=== PATIENT | male | born 1985 | race Caucasian/White ===

== ENCOUNTER 2016-03-22 13:07 | Observation (INO) ==
[2016-03-22] MEDS ORDERED: 0.9 % Sodium Chloride 1,000 ML IVC ONE (13:21)
[2016-03-22] MEDS ORDERED: Ondansetron 4 MG/2 ML VIAL IVP ONE ×2 (13:21→14:18)
--- NOTE | 2016-03-22 13:26 | Emergency Department Note ---
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 Patient has chills diaphoresis crampy abdominal pain diarrhea and vomiting. Pt Subjective Complaint: Heroin withdrawal Onset (ago): hour(s) Pain Scale: 8 - Related Data Previous Rx's Medication Instructions Recorded CloNIDine [Catapres] 0.1 mg PO TID #10 tab 02/12/15 Promethazine [Phenergan] 25 mg PO Q8HR #14 tablet 02/12/15 Doxycycline 100 mg PO BID #20 capsule 12/04/15 HydrOXYzine 10 mg PO TID #15 tablet 12/04/15 TraMADol [Ultram] 50 mg PO TID #10 tablet 12/04/15 Allergies Allergy/AdvReac Type Severity Reaction Status Date / Time No Known Allergies Allergy Verified 12/04/15 00:28 Constitutional: Reports: chills. Denies: fever, weakness, weight change Eyes: Denies: eye pain, eye discharge, vision change ENT ED: Denies: ear pain, throat pain, dental pain, hearing loss, epistaxis, congestion, dysphagia Cardiovascular: Denies: chest pain, palpitations, dyspnea on exertion, edema, syncope Respiratory: Denies: cough, dyspnea, wheezes, hemoptysis, stridor Gastrointestinal: Reports: abdominal pain (Crampy abdominal pain), nausea, vomiting, diarrhea. Denies: constipation, hematemesis, melena, hematochezia Genitourinary: Denies: urgency, dysuria, frequency, hematuria Musculoskeletal: Denies: back pain, neck pain, arthralgia, myalgia Integumentary: Denies: rash, abrasion, lesions Neurological: Denies: headache, weakness, numbness, paresthesias, confusion, abnormal gait, vertigo Psychiatric: Denies: anxiety, depression, suicidal thoughts, homicidal thoughts , auditory hallucinations, visual hallucinations Endocrine: Denies: fatigue Hematological/Lymphatic: Denies: easy bleeding, easy bruising Allergic/Immunologic: Denies: facial swelling, urticaria Past Medical History - Past Medical History Medical history: Reports: no medical history Surgical history: Reports: no surgical history Psychiatric history: Reports: anxiety, bipolar, depression - Social History Smoking Status: Current every day smoker Smokeless Tobacco Status: No Alcohol use: Reports: none Drug use: Reports: cocaine, opiates, IVDU, prescription drug abuse Physical Exam - General Limitations: no limitations General appearance: alert, in no apparent distress - Head Head exam: atraumatic, normocephalic, normal inspection - Eye Eye exam: Present: normal appearance, PERRL, EOMI - ENT ENT exam: normal exam, normal oropharynx, mucous membranes moist - Neck Neck exam: Present: normal inspection, full ROM, trachea midline - Chest Chest inspection: Present: normal inspection, symmetric chest wall rise - Respiratory Respiratory exam: Present: normal lung sounds bilaterally - Cardiovascular Cardiovascular exam: Present: regular rate, normal rhythm, normal heart sounds - Abdominal Exam Abdominal exam: Present: soft, Non-Tender. Absent: tenderness, distention, guarding, rebound, rigidity - Extremities Exam Extremities exam: Present: normal inspection, full ROM. Absent: tenderness, pedal edema - Expanded Lower Extremity Exam Neurovascular/Tendon exam: Absent: motor deficit, sensory deficit, tendon deficit Gait: not tested/not observed - Back Exam Back exam: Present: normal inspection, full ROM. Absent: tenderness - Neurological Exam Neurological exam: Present: alert, oriented X3 - Psychiatric Psychiatric exam: Present: normal affect, normal mood - Skin Skin exam: Present: warm, dry, intact, normal color Course - Reevaluation(s) Reevaluation #1: The patient has persistent nausea vomiting despite treatment with IV Zofran and Phenergan. Time: 18:09 - Consultations Consultation #1: Discussed with jp Gaspar. Time: 18:10 Vital Signs Temperature 99.4 F 03/22/16 13:11 Pulse Rate 82 03/22/16 13:11 Respiratory Rate 16 03/22/16 13:11 Blood Pressure 111/74 03/22/16 13:11 O2 Sat by Pulse Oximetry 100 03/22/16 13:11 Temperature 99.4 F 03/22/16 13:11 Pulse Rate 58 03/22/16 17:30 Respiratory Rate 16 03/22/16 17:30 Blood Pressure 113/81 03/22/16 17:30 O2 Sat by Pulse Oximetry 100 03/22/16 17:30 Oxygen Delivery Oxygen Delivery Room Air Medical Decision Making - Lab Data Result diagrams: 03/22/16 13:31 03/22/16 13:31 Lab Results 03/22/16 03/22/16 03/22/16 Range/Units 13:31 13:31 15:30 WBC 9.8 (4.3-11.1) K/mcL RBC 4.62 (4.19-5.50) M/mcL Hgb 13.1 (12.9-16.9) g/dL Hct 38.7 (37.5-50.1) % MCV 83.8 (83.0-100.0) fL MCH 28.4 (28.0-33.3) pg MCHC 33.9 (31.6-35.5) g/dL RDW 13.7 (11.5-14.5) % Plt Count 279 (140-400) K/mcL MPV 9.6 (9.4-12.4) fL Immature Gran % 0.9 (0-4) % Seg Neutrophils % 78.7 % Lymphocytes % 16.0 % Monocytes % 4.0 % Eosinophils % 0.0 % Basophils % 0.4 % Neutrophils # 7.7 (1.6-8.9) K/mcL Lymphocytes # 1.6 (0.6-4.6) K/mcL Monocytes # 0.4 (0.0-1.3) K/mcL Eosinophils # 0.0 (0.0-0.6) K/mcL Basophils # 0.0 (0.0-0.2) K/mcL Reactive Lymphocytes Present A (Not Present) Platelet Estimate Normal (Normal) Sodium 140 (136-145) mEq/L Potassium 3.8 (3.5-4.5) mEq/L Chloride 108 (98-109) mEq/L Carbon Dioxide 22 (19-29) mEq/L BUN 10 (8-26) mg/dL Creatinine 0.84 (0.72-1.25) mg/dL Est GFR ( Amer) > 60 (> 60) Est GFR (Non-Af Amer) > 60 (> 60) BUN/Creatinine Ratio 12 (6-26) Glucose 126 H (70-99) mg/dL Calculated Osmolality 291 (280-300) Calcium 9.9 (8.6-10.8) mg/dL Total Bilirubin 0.6 (0.2-1.2) mg/dL Direct Bilirubin 0.3 (0.0-0.5) mg/dL Indirect Bilirubin 0.3 (0.0-1.2) mg/dL AST 19 (5-34) Units/L ALT 17 (0-55) Units/L Alkaline Phosphatase 83 (38-126) Units/L Serum Total Protein 8.6 H (6.0-8.3) g/dL Albumin 3.5 (3.5-5.0) g/dL Globulin 5.1 H (2.4-3.5) g/dL Albumin/Globulin Ratio 0.7 L (1.1-2.2) Urine Color Dark Yellow (Yellow) Urine Clarity Clear (Clear) Urine pH 8.5 H (5.0-8.0) pH Units Ur Specific [place] 1.029 H (1.010-1.025) Urine Protein >=300 H (Neg-Trace) mg/dL Urine Glucose (UA) Normal (Normal) mg/dL Urine Ketones 15 H (Negative) mg/dL Urine Blood Negative (Negative) Urine Nitrite Negative (Negative) Urine Bilirubin Small H (Negative) Urine Urobilinogen Normal (Normal) mg/dL Ur Leukocyte Esterase Negative (Negative) Urine Microscopic RBC 0-3 (0-3) per hpf Urine Microscopic WBC 3-5 H (0-3) per hpf Ur Squamous Epith Cells Many H (None-Few) per lpf Urine Bacteria None Seen (None-Few) per hpf Hyaline Casts Test Not Performed Salicylates < 5.0 L (15-30) mg/dL Urine Opiates Screen (Ymxpqv=069) ng/mL Acetaminophen < 1.0 L (10-30) mcg/mL Ur Barbiturates Screen (Redcyc=552) ng/mL Ur Phencyclidine Scrn (Cutoff=25) ng/mL Ur Amphetamines Screen (Nbsmtp=2273) ng/mL U Benzodiazepines Scrn (Levnkk=938) ng/mL Urine Cocaine Screen (Cutoff= 300) ng/mL U Marijuana (THC) Screen (Cutoff = 50) ng/mL Ethyl Alcohol < 10 (0-10) mg/dL 03/22/16 Range/Units 15:30 WBC (4.3-11.1) K/mcL RBC (4.19-5.50) M/mcL Hgb (12.9-16.9) g/dL Hct (37.5-50.1) % MCV (83.0-100.0) fL MCH (28.0-33.3) pg MCHC (31.6-35.5) g/dL RDW (11.5-14.5) % Plt Count (140-400) K/mcL MPV (9.4-12.4) fL Immature Gran % (0-4) % Seg Neutrophils % % Lymphocytes % % Monocytes % % Eosinophils % % Basophils % % Neutrophils # (1.6-8.9) K/mcL Lymphocytes # (0.6-4.6) K/mcL Monocytes # (0.0-1.3) K/mcL Eosinophils # (0.0-0.6) K/mcL Basophils # (0.0-0.2) K/mcL Reactive Lymphocytes (Not Present) Platelet Estimate (Normal) Sodium (136-145) mEq/L Potassium (3.5-4.5) mEq/L Chloride (98-109) mEq/L Carbon Dioxide (19-29) mEq/L BUN (8-26) mg/dL Creatinine (0.72-1.25) mg/dL Est GFR ( Amer) (> 60) Est GFR (Non-Af Amer) (> 60) BUN/Creatinine Ratio (6-26) Glucose (70-99) mg/dL Calculated Osmolality (280-300) Calcium (8.6-10.8) mg/dL Total Bilirubin (0.2-1.2) mg/dL Direct Bilirubin (0.0-0.5) mg/dL Indirect Bilirubin (0.0-1.2) mg/dL AST (5-34) Units/L ALT (0-55) Units/L Alkaline Phosphatase (38-126) Units/L Serum Total Protein (6.0-8.3) g/dL Albumin (3.5-5.0) g/dL Globulin (2.4-3.5) g/dL Albumin/Globulin Ratio (1.1-2.2) Urine Color (Yellow) Urine Clarity (Clear) Urine pH (5.0-8.0) pH Units Ur Specific [place] (1.010-1.025) Urine Protein (Neg-Trace) mg/dL Urine Glucose (UA) (Normal) mg/dL Urine Ketones (Negative) mg/dL Urine Blood (Negative) Urine Nitrite (Negative) Urine Bilirubin (Negative) Urine Urobilinogen (Normal) mg/dL Ur Leukocyte Esterase (Negative) Urine Microscopic RBC (0-3) per hpf Urine Microscopic WBC (0-3) per hpf Ur Squamous Epith Cells (None-Few) per lpf Urine Bacteria (None-Few) per hpf Hyaline Casts Salicylates (15-30) mg/dL Urine Opiates Screen Positive H (Ddditl=641) ng/mL Acetaminophen (10-30) mcg/mL Ur Barbiturates Screen Negative (Emaypz=668) ng/mL Ur Phencyclidine Scrn Negative (Cutoff=25) ng/mL Ur Amphetamines Screen Negative (Htmezt=7979) ng/mL U Benzodiazepines Scrn Negative (Mbcuda=128) ng/mL Urine Cocaine Screen Positive H (Cutoff= 300) ng/mL U Marijuana (THC) Screen Negative (Cutoff = 50) ng/mL Ethyl Alcohol (0-10) mg/dL - EKG Data EKG #1 EKG shows normal: sinus rhythm Rate: bradycardia Rhythm: NSR Interpretation: no acute changes
[2016-03-22] MEDS ORDERED: CloNIDine Patch 0.1 MG PATCH (WEEKLY) TD SCH (13:30)
[2016-03-22 13:37] LABS: Basophils % 0.4 %; Hematocrit 38.7 % (37.5-50.1); Hemoglobin 13.1 g/dL (12.9-16.9); Immature Granulocytes % 0.9 % (0-4); Lymphocytes # 1.6 K/mcL (0.6-4.6); Mean Corpuscular HGB Conc 33.9 g/dL (31.6-35.5); Mean Corpuscular Hemoglobin 28.4 pg (28.0-33.3); Mean Corpuscular Volume 83.8 fL (83.0-100.0); Mean Platelet Volume 9.6 fL (9.4-12.4); Monocytes # 0.4 K/mcL (0.0-1.3); Neutrophils # 7.7 K/mcL (1.6-8.9); Platelet Count 279 K/mcL (140-400); Red Blood Count 4.62 M/mcL (4.19-5.50); Red Cell Distribution Width 13.7 % (11.5-14.5); Segmented Neutrophils % 78.7 %
[2016-03-22 13:52] LABS: Alanine Aminotransferase 17 Units/L (0-55); Albumin 3.5 g/dL (3.5-5.0); Albumin/Globulin Ratio 0.7 (1.1-2.2); Alkaline Phosphatase 83 Units/L (38-126); Aspartate Amino Transferase 19 Units/L (5-34); BUN/Creatinine Ratio 12 (6-26); Bilirubin,Direct 0.3 mg/dL (0.0-0.5); Bilirubin,Indirect 0.3 mg/dL (0.0-1.2); Bilirubin,Total 0.6 mg/dL (0.2-1.2); Blood Urea Nitrogen 10 mg/dL (8-26); Calcium 9.9 mg/dL (8.6-10.8); Carbon Dioxide 22 mEq/L (19-29); Chloride 108 mEq/L (98-109); Globulin 5.1 g/dL (2.4-3.5); Glucose 126 mg/dL (70-99); Osmolality,Calculated 291 (280-300); Potassium 3.8 mEq/L (3.5-4.5); Sodium 140 mEq/L (136-145); Total Protein 8.6 g/dL (6.0-8.3); eGFR For African Americans > 60 (> 60); eGFR For Non-African Americans > 60 (> 60)
[2016-03-22 13:54] LABS: Acetaminophen < 1.0 mcg/mL (10-30); Ethanol < 10 mg/dL (0-10); Salicylate < 5.0 mg/dL (15-30)
[2016-03-22 13:57] LABS: Platelet Estimate Normal (Normal); Reactive Lymphocytes Present (Not Present)
[2016-03-22 15:50] LABS: Amphetamine Screen,Urine Negative ng/mL (Cutoff=1000); Barbiturate Screen,Urine Negative ng/mL (Cutoff=200); Benzodiazepines Screen,Urine Negative ng/mL (Cutoff=200); Cannabinoid Screen,Urine Negative ng/mL (Cutoff = 50); Cocaine Screen,Urine Positive ng/mL (Cutoff= 300); Opiate Screen,Urine Positive ng/mL (Cutoff=300); Phencyclidine Screen,Urine Negative ng/mL (Cutoff=25)
[2016-03-22 16:12] LABS: Bilirubin,Urine Small (Negative); Blood,Urine Negative (Negative); Clarity,Urine Clear (Clear); Color,Urine Dark Yellow (Yellow); Glucose,Urine (UA) Normal (Normal); Ketones,Urine 15 mg/dL (Negative); Leukocyte Esterase,Urine Negative (Negative); Nitrite,Urine Negative (Negative); PH,Urine 8.5 pH Units (5.0-8.0); Protein,Urine >=300 mg/dL (Neg-Trace); Specific Gravity,Urine 1.029 (1.010-1.025); Urobilinogen,Urine Normal (Normal)
[2016-03-22 16:15] LABS: Bacteria,Urine None Seen per hpf (None-Few); RBC,Urine 0-3 per hpf (0-3); Squamous Epithelial Cell,Urine Many per lpf (None-Few)
[2016-03-22] MEDS ORDERED: *HR* Promethazine 25 MG/ML VIAL IVP ONE (16:55)
[2016-03-22] MEDS ORDERED: Naloxone 0.4 MG/ML INJ IVP PRN (19:23)
[2016-03-22] MEDS: Ringers Solution, Lactated 1,000 ML IVC SCH (21:37)
[2016-03-22] MEDS: Famotidine 20 MG/2 ML VIAL IVP SCH (21:38)
[2016-03-22] MEDS: *HR* Promethazine 25 MG/ML VIAL IVP PRN (21:43)
--- NOTE | 2016-03-22 22:00 | Internal Med History&Physical ---
Date of Encounter: 03/22/16 Time of Encounter: 19:35 Internal Medicine - H&P: HPI Chief complaint: Feeling sick, nausea, vomitting, abdominal pain x 1-2 days Admitted From: Emergency Dept Plans for Post Hospital Care: Home History of present illness: Mr. 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 He reports his last use was 2 days ago. He has not been able to access the drug. He reports intravenous use and snorting. He denies history of hepatitis. He has had occasional encounter with the law, work and family life has been affected. He is FULL CODE as per discussion. He nominates his spouse, Cait Love ([phone]) HIS nok/poa. Medical history: Reports: no medical history Surgical history: Reports: no surgical history Psychiatric history: Reports: anxiety, bipolar, depression Smoking Status: Current every day smoker Smokeless Tobacco Status: No Alcohol use: Reports: none Drug use: Reports: cocaine, opiates, IVDU, prescription drug abuse Family History: Father: heart disease, mother: DM2 ROS: A 10-point ROS was performed, positives and relevant negatives are detailed , system-symptoms not mentioned is assumed negative unless otherwise stated. Vital Signs Temperature 99.4 F 03/22/16 13:11 Pulse Rate 82 03/22/16 13:11 Respiratory Rate 16 03/22/16 13:11 Blood Pressure 111/74 03/22/16 13:11 O2 Sat by Pulse Oximetry 100 03/22/16 13:11 Temperature 99.4 F 03/22/16 13:11 Pulse Rate 58 03/22/16 17:30 Respiratory Rate 16 03/22/16 17:30 Blood Pressure 113/81 03/22/16 17:30 O2 Sat by Pulse Oximetry 100 03/22/16 17:30 O/E: In moderate distress, ill looking, not tremulous, no diaphoresis Not pale, anicteric, afebrile to touch, acyanotic, EOMI, PERRL HEENT: No cervical or jugular lymphadenopathy Chest: Clinically clear Heart: RRR, HS1/2. no tachycardia Abdomen: non-distended, soft, non-tender, no masses HANNAH: Not performed : No flank tenderness, no CVA tenderness, no suprapubic tenderness DEVULCANIZER HEAD: AAO X 3, no gross focal neurological deficits, no tremors on out-stretched hands SKIN: No active skin lesions. 03/22/16 13:31 Lab Results 03/22/16 03/22/16 03/22/16 Range/Units 13:31 13:31 15:30 WBC 9.8 (4.3-11.1) K/mcL RBC 4.62 (4.19-5.50) M/mcL Hgb 13.1 (12.9-16.9) g/dL Hct 38.7 (37.5-50.1) % MCV 83.8 (83.0-100.0) fL MCH 28.4 (28.0-33.3) pg MCHC 33.9 (31.6-35.5) g/dL RDW 13.7 (11.5-14.5) % Plt Count 279 (140-400) K/mcL MPV 9.6 (9.4-12.4) fL Immature Gran % 0.9 (0-4) % Seg Neutrophils % 78.7 % Lymphocytes % 16.0 % Monocytes % 4.0 % Eosinophils % 0.0 % Basophils % 0.4 % Neutrophils # 7.7 (1.6-8.9) K/mcL Lymphocytes # 1.6 (0.6-4.6) K/mcL Monocytes # 0.4 (0.0-1.3) K/mcL Eosinophils # 0.0 (0.0-0.6) K/mcL Basophils # 0.0 (0.0-0.2) K/mcL Reactive Lymphocytes Present A (Not Present) Platelet Estimate Normal (Normal) Sodium 140 (136-145) mEq/L Potassium 3.8 (3.5-4.5) mEq/L Chloride 108 (98-109) mEq/L Carbon Dioxide 22 (19-29) mEq/L BUN 10 (8-26) mg/dL Creatinine 0.84 (0.72-1.25) mg/dL Est GFR ( Amer) > 60 (> 60) Est GFR (Non-Af Amer) > 60 (> 60) BUN/Creatinine Ratio 12 (6-26) Glucose 126 H (70-99) mg/dL Calculated Osmolality 291 (280-300) Calcium 9.9 (8.6-10.8) mg/dL Total Bilirubin 0.6 (0.2-1.2) mg/dL Direct Bilirubin 0.3 (0.0-0.5) mg/dL Indirect Bilirubin 0.3 (0.0-1.2) mg/dL AST 19 (5-34) Units/L ALT 17 (0-55) Units/L Alkaline Phosphatase 83 (38-126) Units/L Serum Total Protein 8.6 H (6.0-8.3) g/dL Albumin 3.5 (3.5-5.0) g/dL Globulin 5.1 H (2.4-3.5) g/dL Albumin/Globulin Ratio 0.7 L (1.1-2.2) Urine Color Dark Yellow (Yellow) Urine Clarity Clear (Clear) Urine pH 8.5 H (5.0-8.0) pH Units Ur Specific [place] 1.029 H (1.010-1.025) Urine Protein >=300 H (Neg-Trace) mg/dL Urine Glucose (UA) Normal (Normal) mg/dL Urine Ketones 15 H (Negative) mg/dL Urine Blood Negative (Negative) Urine Nitrite Negative (Negative) Urine Bilirubin Small H (Negative) Urine Urobilinogen Normal (Normal) mg/dL Ur Leukocyte Esterase Negative (Negative) Urine Microscopic RBC 0-3 (0-3) per hpf Urine Microscopic WBC 3-5 H (0-3) per hpf Ur Squamous Epith Cells Many H (None-Few) per lpf Urine Bacteria None Seen (None-Few) per hpf Hyaline Casts Test Not Performed Salicylates < 5.0 L (15-30) mg/dL Urine Opiates Screen (Zpcnyo=451) ng/mL Acetaminophen < 1.0 L (10-30) mcg/mL Ur Barbiturates Screen (Glqdmb=197) ng/mL Ur Phencyclidine Scrn (Cutoff=25) ng/mL Ur Amphetamines Screen (Shwtws=9290) ng/mL U Benzodiazepines Scrn (Lqggpi=176) ng/mL Urine Cocaine Screen (Cutoff= 300) ng/mL U Marijuana (THC) Screen (Cutoff = 50) ng/mL Ethyl Alcohol < 10 (0-10) mg/dL 03/22/16 Range/Units 15:30 WBC (4.3-11.1) K/mcL RBC (4.19-5.50) M/mcL Hgb (12.9-16.9) g/dL Hct (37.5-50.1) % MCV (83.0-100.0) fL MCH (28.0-33.3) pg MCHC (31.6-35.5) g/dL RDW (11.5-14.5) % Plt Count (140-400) K/mcL MPV (9.4-12.4) fL Immature Gran % (0-4) % Seg Neutrophils % % Lymphocytes % % Monocytes % % Eosinophils % % Basophils % % Neutrophils # (1.6-8.9) K/mcL Lymphocytes # (0.6-4.6) K/mcL Monocytes # (0.0-1.3) K/mcL Eosinophils # (0.0-0.6) K/mcL Basophils # (0.0-0.2) K/mcL Reactive Lymphocytes (Not Present) Platelet Estimate (Normal) Sodium (136-145) mEq/L Potassium (3.5-4.5) mEq/L Chloride (98-109) mEq/L Carbon Dioxide (19-29) mEq/L BUN (8-26) mg/dL Creatinine (0.72-1.25) mg/dL Est GFR ( Amer) (> 60) Est GFR (Non-Af Amer) (> 60) BUN/Creatinine Ratio (6-26) Glucose (70-99) mg/dL Calculated Osmolality (280-300) Calcium (8.6-10.8) mg/dL Total Bilirubin (0.2-1.2) mg/dL Direct Bilirubin (0.0-0.5) mg/dL Indirect Bilirubin (0.0-1.2) mg/dL AST (5-34) Units/L ALT (0-55) Units/L Alkaline Phosphatase (38-126) Units/L Serum Total Protein (6.0-8.3) g/dL Albumin (3.5-5.0) g/dL Globulin (2.4-3.5) g/dL Albumin/Globulin Ratio (1.1-2.2) Urine Color (Yellow) Urine Clarity (Clear) Urine pH (5.0-8.0) pH Units Ur Specific [place] (1.010-1.025) Urine Protein (Neg-Trace) mg/dL Urine Glucose (UA) (Normal) mg/dL Urine Ketones (Negative) mg/dL Urine Blood (Negative) Urine Nitrite (Negative) Urine Bilirubin (Negative) Urine Urobilinogen (Normal) mg/dL Ur Leukocyte Esterase (Negative) Urine Microscopic RBC (0-3) per hpf Urine Microscopic WBC (0-3) per hpf Ur Squamous Epith Cells (None-Few) per lpf Urine Bacteria (None-Few) per hpf Hyaline Casts Salicylates (15-30) mg/dL Urine Opiates Screen Positive H (Ttgsxq=652) ng/mL Acetaminophen (10-30) mcg/mL Ur Barbiturates Screen Negative (Xajtif=477) ng/mL Ur Phencyclidine Scrn Negative (Cutoff=25) ng/mL Ur Amphetamines Screen Negative (Zvagar=1912) ng/mL U Benzodiazepines Scrn Negative (Jkynhz=923) ng/mL Urine Cocaine Screen Positive H (Cutoff= 300) ng/mL U Marijuana (THC) Screen Negative (Cutoff = 50) ng/mL Ethyl Alcohol (0-10) mg/dL EKG: SINUS BRADYCARDIA IMP Probable heroine withdrawal syndrome, but cannot exclude malingering Sinus bradycardia Chronic morbidities Heroine addiction Crack cocaine abuse plan Admit sUPPORTIVE CARE, ivf Clonidine patch IV Morphine 2mg Q6H X 24 HOURS Valium 2mg TID iv Ativan 1mg Q4H prn for agitation or anxiety Famotidine IV 20MG Q12H nO INDICATION for DVT prophylaxis LFTs, hepatitis profile. Patient is high risk due to suspected severe withdrawal syndrome. Past Med Surg Social Fam HX - Past Medical History Medical history: no medical history Psychiatric history: anxiety, bipolar, depression - Past Surgical History Surgical History: no surgical history - Social History Smoking Status: Current every day smoker Smokeless Tobacco Status: No Alcohol use: none Drug use: cocaine, opiates, IVDU, prescription drug abuse - Family History Mother Living Status: Still Living Internal Medicine - H&P: Meds No Known Home Drugs 03/22/16 [History] Allergies No Known Allergies Allergy (Verified 12/04/15 00:28) All Systems PM: A 10-system review of systems was performed and is negative for pertinent findings except as documented above in the HPI. - Constitutional Vitals: Temp Pulse Resp BP Pulse Ox 98.8 F 50 16 113/70 100 03/22/16 20:53 03/22/16 20:53 03/22/16 20:53 03/22/16 20:53 03/22/16 20:53 Internal Med - H&P Results - Labs CBC & Chem 7: 03/22/16 13:31 03/22/16 13:31 - VTE Reasons for not Prescribing Prophylaxis: Treatment not Indicated - Low risk for VTE
[2016-03-22] MEDS ORDERED: *HR* LORazepam 2 MG/ML VIAL IVP PRN (22:12)
[2016-03-22] MEDS: *HR* Morphine 2 MG/ML SYRINGE IVP SCH (23:54)
[2016-03-22] MEDS: diazePAM 2 MG TABLET PO SCH (23:54)
[2016-03-23] MEDS: Ringers Solution, Lactated 1,000 ML IVC SCH ×3 (04:36→19:35)
[2016-03-23] MEDS: *HR* Promethazine 25 MG/ML VIAL IVP PRN ×3 (04:36→21:41)
[2016-03-23] MEDS: *HR* Morphine 2 MG/ML SYRINGE IVP SCH ×3 (05:54→21:34)
[2016-03-23] MEDS: Famotidine 20 MG/2 ML VIAL IVP SCH ×2 (06:48→18:04)
[2016-03-23 09:04] LABS: Hepatitis B Core IgM Nonreactive (Nonreactive); Hepatitis B Surface Antigen Nonreactive (Nonreactive); Hepatitis C Virus Antibody Nonreactive (Nonreactive)
[2016-03-23] MEDS: diazePAM 2 MG TABLET PO SCH ×3 (09:15→21:34)
[2016-03-23 10:37] LABS: Hepatitis A Antibody IgM Nonreactive (Nonreactive)
--- NOTE | 2016-03-23 11:27 | Electrocardiograph Report ---
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
[2016-03-23] MEDS ORDERED: 0.9 % Sodium Chloride 1,000 ML IVC ONE (11:44)
[2016-03-23] MEDS ORDERED: 0.9 % Sodium Chloride 1,000 ML ONE (11:50)
--- NOTE | 2016-03-23 12:09 | Internal Med Progress Note ---
Date of Encounter: 03/23/16 Time of Encounter: 12:05 - Assessment and plan (1) Intractable nausea and vomiting Current Visit: Yes Status: Acute Assessment and plan: [place] BID , advance diet as tolerated Qualifiers: Vomiting type: unspecified Qualified Code(s): R11.2 - Nausea with vomiting , unspecified Code(s): R11.2 - Nausea with vomiting, unspecified SNOMED Code(s): 571298513, 761567871 (2) Drug withdrawal Current Visit: Yes Status: Acute Assessment and plan: Increase valium, may consider atarax Qualifiers: Substance type: opioid Qualified Code(s): F11.23 - Opioid dependence with withdrawal Code(s): F19.939 - Other psychoactive substance use, unspecified with withdrawal , unspecified SNOMED Code(s): 700547112 (3) Volume depletion Current Visit: Yes Status: Acute Assessment and plan: Add bolus fluid. discussed with staff close monitoring of vital signs Code(s): E86.9 - Volume depletion, unspecified SNOMED Code(s): 67197492 - Time Spent With Patient 25 - 35 minutes - Subjective Interval history: Patient C/o nausea , no vomiting since 3 AM. Patient is feeling anxious, tolerated clear liquid - Constitutional Vitals: Temp Pulse Resp BP Pulse Ox 98.5 F 61 17 96/55 100 03/23/16 11:25 03/23/16 11:25 03/23/16 11:25 03/23/16 11:25 03/23/16 11:25 General appearance: Present: mild distress, pleasant, answers questions appropriately - Eye Eye exam: Present: conjuntiva pink, sclera anicteric. Absent: nystagmus - Neck Neck exam general surgery: Present: supple, trachea midline. Absent: lymphadenopathy - Respiratory Respiratory exam: Present: CTAB. Absent: accessory muscle use, rales, rhonchi, wheezes - Cardiovascular Cardiovascular exam: Present: RRR, +S1, +S2. Absent: diastolic murmur, gallop, rubs, systolic murmur - GI/Abdominal GI/Abdominal exam: Present: normal bowel sounds, soft, no peritoneal signs. Absent: distended, tenderness - Extremities Exam Extremities exam: Present: warm, radial pulses palpable and symetrical. Absent : calf tenderness, cyanotic, pedal edema - Skin Skin exam: Present: dry, intact Internal Medicine: Result - Labs CBC & Chem 7: 03/22/16 13:31 03/22/16 13:31 - VTE Reasons for not Prescribing Prophylaxis: Treatment not Indicated - Low risk for VTE Consult Discharge Plan - Plan Referrals: NO,PCP [Primary Care Provider] -
[2016-03-23] MEDS ORDERED: *HR* LORazepam 2 MG/ML VIAL IVP PRN (12:15)
[2016-03-23 13:27] LABS: Magnesium 1.7 mg/dL (1.6-2.6); Phosphorous 3.9 mg/dL (2.3-4.7)
[2016-03-23] MEDS ORDERED: *HR* Morphine 2 MG/ML SYRINGE ONE (21:28)
[2016-03-24] MEDS: Ringers Solution, Lactated 1,000 ML IVC SCH ×3 (02:15→17:00)
[2016-03-24] MEDS: Famotidine 20 MG/2 ML VIAL IVP SCH ×2 (05:50→17:00)
[2016-03-24] MEDS: *HR* Promethazine 25 MG/ML VIAL IVP PRN ×2 (05:50→20:52)
[2016-03-24] MEDS: Ondansetron 4 MG/2 ML VIAL IVP PRN (08:41)
[2016-03-24] MEDS ORDERED: diazePAM 5 MG TABLET PO SCH (09:00)
[2016-03-24 11:10] LABS: Alanine Aminotransferase 18 Units/L (0-55); Albumin 3.1 g/dL (3.5-5.0); Albumin/Globulin Ratio 0.7 (1.1-2.2); Alkaline Phosphatase 66 Units/L (38-126); Aspartate Amino Transferase 15 Units/L (5-34); BUN/Creatinine Ratio 11 (6-26); Bilirubin,Total 0.8 mg/dL (0.2-1.2); Blood Urea Nitrogen 9 mg/dL (8-26); Calcium 8.9 mg/dL (8.6-10.8); Carbon Dioxide 24 mEq/L (19-29); Chloride 107 mEq/L (98-109); Globulin 4.2 g/dL (2.4-3.5); Glucose 113 mg/dL (70-99); Osmolality,Calculated 285 (280-300); Potassium 3.5 mEq/L (3.5-4.5); Sodium 138 mEq/L (136-145); Total Protein 7.3 g/dL (6.0-8.3); eGFR For African Americans > 60 (> 60); eGFR For Non-African Americans > 60 (> 60)
[2016-03-24 11:17] LABS: Basophils % 0.4 %; Eosinophils % 0.1 %; Hematocrit 37.9 % (37.5-50.1); Hemoglobin 12.4 g/dL (12.9-16.9); Immature Granulocytes % 3.8 % (0-4); Lymphocytes # 2.1 K/mcL (0.6-4.6); Lymphocytes % 20.4 %; Mean Corpuscular HGB Conc 32.7 g/dL (31.6-35.5); Mean Corpuscular Hemoglobin 27.9 pg (28.0-33.3); Mean Corpuscular Volume 85.2 fL (83.0-100.0); Monocytes # 0.7 K/mcL (0.0-1.3); Neutrophils # 7.1 K/mcL (1.6-8.9); Platelet Count 311 K/mcL (140-400); Red Blood Count 4.45 M/mcL (4.19-5.50); Red Cell Distribution Width 13.4 % (11.5-14.5); Segmented Neutrophils % 68.3 %
[2016-03-24] MEDS: Sucralfate 1 GM TABLET PO SCH ×3 (11:29→20:52)
--- NOTE | 2016-03-24 14:41 | Internal Med Progress Note ---
Date of Encounter: 03/24/16 Time of Encounter: 14:00 - Assessment and plan (1) Intractable nausea and vomiting Current Visit: Yes Status: Acute Assessment and plan: Protonix twice a day, check stool for occult blood. Access diet as tolerated. Check liver function test Qualifiers: Vomiting type: unspecified Qualified Code(s): R11.2 - Nausea with vomiting , unspecified Code(s): R11.2 - Nausea with vomiting, unspecified SNOMED Code(s): 454699251, 856775929 (2) Drug withdrawal Current Visit: Yes Status: Acute Assessment and plan: Counseling patient about long-term complication of IV drug use. Patient is seeking help for rehabilitation Qualifiers: Substance type: opioid Qualified Code(s): F11.23 - Opioid dependence with withdrawal Code(s): F19.939 - Other psychoactive substance use, unspecified with withdrawal , unspecified SNOMED Code(s): 489390025 (3) Volume depletion Current Visit: Yes Status: Acute Assessment and plan: Continue IV fluid Code(s): E86.9 - Volume depletion, unspecified SNOMED Code(s): 36829546 (4) Acute diarrhea Current Visit: Yes Status: Acute Assessment and plan: Check stool Study add Lactobacillus - Time Spent With Patient Greater than 35 minutes - Subjective Interval history: Patient still C/o nausea , no vomiting , very hard to tolerate any oral intake. He C/o diarrhea had 4 loose BM - Constitutional Vitals: Temp Pulse Resp BP Pulse Ox 97.6 F 49 16 109/63 99 03/24/16 11:12 03/24/16 11:12 03/24/16 11:12 03/24/16 11:12 03/24/16 11:12 General appearance: Present: mild distress, pleasant, answers questions appropriately - Head Head exam: Present: atraumatic, normocephalic - Neck Neck exam general surgery: Present: supple, trachea midline. Absent: lymphadenopathy - Respiratory Respiratory exam: Present: CTAB. Absent: accessory muscle use, rales, rhonchi, wheezes - Cardiovascular Cardiovascular exam: Present: RRR, +S1, +S2. Absent: diastolic murmur, gallop, rubs, systolic murmur - GI/Abdominal GI/Abdominal exam: Present: normal bowel sounds, soft, tenderness (Diffuse abdominal tenderness more in the epigastric area and bilateral upper quadrant area), no peritoneal signs. Absent: distended - Extremities Exam Extremities exam: Present: warm, radial pulses palpable and symetrical. Absent : calf tenderness, cyanotic, pedal edema Internal Medicine: Result - Labs CBC & Chem 7: 03/24/16 10:36 03/24/16 10:36 Labs: Short CBC 03/24/16 Range/Units 10:36 WBC 10.4 (4.3-11.1) K/mcL Hgb 12.4 L (12.9-16.9) g/dL Hct 37.9 (37.5-50.1) % Plt Count 311 (140-400) K/mcL Neutrophils # 7.1 (1.6-8.9) K/mcL BMP 03/24/16 10:36 Sodium 138 Potassium 3.5 Chloride 107 Carbon Dioxide 24 BUN 9 Creatinine 0.80 Glucose 113 H Calcium 8.9 Liver Function 03/24/16 Range/Units 10:36 Total Bilirubin 0.8 (0.2-1.2) mg/dL AST 15 (5-34) Units/L ALT 18 (0-55) Units/L Alkaline Phosphatase 66 (38-126) Units/L Albumin 3.1 L (3.5-5.0) g/dL - VTE Reasons for not Prescribing Prophylaxis: Treatment not Indicated - Low risk for VTE Consult Discharge Plan - Plan Referrals: NO,PCP [Primary Care Provider] -
[2016-03-24] MEDS: diazePAM 5 MG TABLET PO SCH ×2 (15:47→20:52)
[2016-03-25] MEDS: Ringers Solution, Lactated 1,000 ML IVC SCH ×2 (00:32→06:51)
[2016-03-25] MEDS ORDERED: diazePAM 10 MG/2 ML SYRINGE IVP ONE (04:45)
[2016-03-25] MEDS: Famotidine 20 MG/2 ML VIAL IVP SCH (05:07)
[2016-03-25] MEDS: Ondansetron 4 MG/2 ML VIAL IVP PRN ×2 (05:08→13:00)
[2016-03-25] MEDS: Sucralfate 1 GM TABLET PO SCH ×2 (08:42→11:24)
[2016-03-25] MEDS: diazePAM 5 MG TABLET PO SCH (08:42)
[2016-03-25 11:04] VITALS: BP 93/61
--- NOTE | 2016-03-25 11:48 | Discharge Summary ---
Date of Encounter: 03/25/16 Time of Encounter: 11:40 - Discharge Diagnosis (1) Intractable nausea and vomiting Priority: Secondary Status: Acute Qualifiers: Vomiting type: unspecified Qualified Code(s): R11.2 - Nausea with vomiting , unspecified Code(s): R11.2 - Nausea with vomiting, unspecified SNOMED Code(s): 377809769, 883723974 (2) Drug withdrawal Priority: Primary Status: Acute Qualifiers: Substance type: opioid Qualified Code(s): F11.23 - Opioid dependence with withdrawal Code(s): F19.939 - Other psychoactive substance use, unspecified with withdrawal , unspecified SNOMED Code(s): 063150984 (3) Volume depletion Priority: Secondary Status: Acute Code(s): E86.9 - Volume depletion, unspecified SNOMED Code(s) : 58186339 (4) Acute diarrhea Priority: Secondary Status: Acute - Discharge Medications Prescriptions: Promethazine [Phenergan] 25 mg PO Q8HR PRN #30 tablet PRN Reason: Nausea And Vomiting Diazepam [Valium] 5 mg PO BID PRN #16 tablet PRN Reason: Anxiety Omeprazole [PriLOSEC] 40 mg PO DAILY #30 capsule. Sertraline [Zoloft] 25 mg PO DAILY #30 tablet Home Medications: Diazepam [Valium] 5 mg PO BID PRN #16 tablet 03/25/16 [Rx] Omeprazole [PriLOSEC] 40 mg PO DAILY #30 capsule. 03/25/16 [Rx] Promethazine [Phenergan] 25 mg PO Q8HR PRN #30 tablet 03/25/16 [Rx] Sertraline [Zoloft] 25 mg PO DAILY #30 tablet 03/25/16 [Rx] Allergies/Adverse Reactions: Allergies No Known Allergies Allergy (Verified 12/04/15 00:28) Date of admission: 03/22/16 18:20 Primary care physician: PCP NO Consults: 03/22/16 21:50 Consult to [employer]ice [CONS] Routine Reason for SW Consult: history of IVD use, interested in treatment Discharging clinician: Shahana Cadena - Patient Status Disposition: Home, Self-Care Condition: Good Functional capacity at discharge: independent ambulation Overall status at discharge: patient is progressing back to baseline - Discharge Instructions Follow Up With: NO,PCP [Primary Care Provider] - Additional Instructions: Please follow up with psychiatry and family doctor in 1 week - Diet and Activity Activity: resume usual activities as tolerated Hospital course: Mr. Love is a 31 year old male with past medical history of heroin use , He claimed high heroine use presents with feeling sick, nausea, vomiting, crampy abdominal pain and hallucinations for the past 2 days. He reports his last use was 2 days prior to admission. He has not been able to access the drug. He reported intravenous use and snorting. He denies history of hepatitis. He he has been feeling fairly depressed with going through Divorce . Patient was admitted to the hospital and was started patient on IV fluid supportive treatment of his nausea vomiting. Stool study was sent. We will start patient on Protonix and Carafate for his gastritis. Advanced diet as tolerated. With his anxiety and Drug withdrawal symptoms we started him on Valium 3 times /day, with his depression we start patient on Zoloft counseling patient to follow-up as an outpatient with psychiatry .. Patient condition continued to improve . I attest as tolerated. Patient tolerated all his meals. Patient will be discharged to stay with his sister . Prescription ovarian will be given to sister for any sever withdrawl symptoms . - Time Spent with Patient Total time spent providing and/or coordinating discharge services: Less than 30 minutes - Constitutional Vitals: Temp Pulse Resp BP Pulse Ox 98.5 F 44 16 93/61 97 03/25/16 11:04 03/25/16 11:04 03/25/16 11:04 03/25/16 11:04 03/25/16 11:04 General appearance: Present: A&O X 3, pleasant, answers questions appropriately - Head Head exam: Present: atraumatic, normocephalic - Neck Neck exam general surgery: Present: supple, trachea midline. Absent: lymphadenopathy - Respiratory Respiratory exam: Present: CTAB. Absent: accessory muscle use, rales, rhonchi, wheezes - Cardiovascular Cardiovascular exam: Present: RRR, +S1, +S2. Absent: diastolic murmur, gallop, rubs, systolic murmur - GI/Abdominal GI/Abdominal exam: Present: normal bowel sounds, soft, tenderness (Epigastric tenderness), no peritoneal signs. Absent: distended - Extremities Exam Extremities exam: Present: warm, radial pulses palpable and symetrical. Absent : calf tenderness, cyanotic, pedal edema - Neurological Exam Neurological exam: Present: CN II-XII intact, oriented X3, no focal deficits. Absent: pronater drift, facial droop, speech deficit - Psychiatric Psychiatric exam: Present: depressed. Absent: homicidal ideation, manic, suicidal ideation - Skin Skin exam: Present: dry, intact - VTE Reasons for not Prescribing Prophylaxis: Treatment not Indicated - Low risk for VTE
== END 2016-03-25 13:27 | disposition home or self-care (01) ==
LOC: EMEROO 13:07 → 3BNU 13:07
PROVIDERS: ADMIT Internal Medicine; ATTEND Internal Medicine